=== PATIENT | male | born 1955 | race Two or more races ===

== ENCOUNTER 2022-04-23 03:09 | Inpatient (IN) | payer MEDICARE, OTHER ==
[~2022-04-23] VITALS: Ht 177.8 cm; Wt 74.8 kg
[2022-04-23] MEDS ORDERED: LORAZEPAM INJ 2 MG/ML VIAL ONE ×2 (03:37→05:22)
--- NOTE | 2022-04-23 03:40 | NUR ---
PATIENT BIBRA 87 FROM HOME PER EMS, PATIENTS FRIEND CALLED TO CHECK ON PATIENT. PATIENT WAS FOUND IN BATHROOM, COVERED IN FECES, EMPTY ALCOHOL BOTTLES FOUND IN BATHROOM, WITH CRACK PIPES. PATIENT IS A/O X 3, LABORED BREATHING, TACHY. PATIENT TAKEN TO ER BED 12. PATIENT CONNECTED TO CARDAIC MONITOR AND POX.
--- NOTE | 2022-04-23 03:48 | NUR ---
LAC#18 G S/L BLOOD COLLECTED AND SENT TO LAB
[2022-04-23] MEDS ORDERED: METOPROLOL TARTRATE INJ 5 MG/5 ML AMPUL ONE ×3 (03:58→04:47)
[2022-04-23] MEDS ORDERED: LORAZEPAM INJ 2 MG/ML VIAL IV ONE ×2 (04:00→05:30)
[2022-04-23] MEDS ORDERED: IV NS 0.9% 1,000 ML IV ONE (04:00)
[2022-04-23] MEDS ORDERED: METOPROLOL TARTRATE INJ 5 MG/5 ML AMPUL IV ONE ×3 (04:00→05:00)
--- NOTE | 2022-04-23 04:08 | NUR ---
COVID ANTIGEN SWAB COLLECTED AND SENT TO LAB
--- NOTE | 2022-04-23 04:15 | NUR ---
MANAGER SYSTEM AT PT'S BEDSIDE
--- NOTE | 2022-04-23 04:15 | NUR ---
PT TAKEN TO CT VIA DONOVAN
[2022-04-23 04:41] LABS: BASOPHILS % (AUTO) 0.1 % (0.0-2.0); HEMATOCRIT 42 % (39-51); HEMOGLOBIN 14.1 g/dL (13.5-17.5); LYMPHOCYTES # (AUTO) 0.3 K/uL (0.8-4.8); LYMPHOCYTES % (AUTO) 2.4 % (20.0-44.0); MEAN CORPUSCULAR HGB CONC 34 g/dl (31.0-36.0); MEAN CORPUSCULAR VOLUME 106 fL (80-96); MONOCYTES # (AUTO) 1.2 K/uL (0.1-1.30); MONOCYTES % (AUTO) 8.3 % (2.0-12.0); NEUTROPHILS # (AUTO) 12.6 K/uL (1.8-8.9); NEUTROPHILS % (AUTO) 89.2 % (43.0-81.0); PLATELET COUNT (AUTO) 209 K/uL (150-450); RED BLOOD CELL COUNT(AUTO) 3.94 MIL/uL (4.5-6.0); WHITE BLOOD COUNT (AUTO) 14.1 K/uL (4.3-11.0)
[2022-04-23 04:52] LABS: CREATININE 1.2 mg/dL (0.6-1.3); POTASSIUM 4.6 mmol/L (3.5-5.1)
[2022-04-23] MEDS ORDERED: METOPROLOL TARTRATE 50 MG TABLET ONE (05:04)
[2022-04-23] MEDS ORDERED: METOPROLOL SUCCINATE 25 MG TAB.SR.24H ONE (05:06)
[2022-04-23 05:17] LABS: ALBUMIN 2.7 g/dL (3.4-5.0); BILIRUBIN,TOTAL 2.5 mg/dL (0.2-1.0); TOTAL PROTEIN, SERUM 8.1 g/dL (6.4-8.2)
[2022-04-23] MEDS: METOPROLOL SUCCINATE 50 MG TAB.SR.24H PO SCH (05:18)
--- NOTE | 2022-04-23 05:18 | NUR ---
URINE COLLECTED AND SENT TO LAB
[2022-04-23] MEDS ORDERED: Thiamine 100 MG in IV D5W 50 ML IV STA (05:23)
[2022-04-23 05:26] LABS: BILIRUBIN,DIRECT 1.7 mg/dL (0.0-0.2)
[2022-04-23] MEDS ORDERED: Thiamine 100 MG/ML VIAL ONE (05:27)
[2022-04-23] MEDS ORDERED: ACETAMINOPHEN 325 MG TABLET PO PRN (06:00)
[2022-04-23] MEDS ORDERED: Z GUARD REMEDY 4 OZ OINT TP PRN (06:00)
[2022-04-23] MEDS ORDERED: MAG HYDROX/AL HYDROX/SIMETH 30 ML UDC PO PRN (06:00)
[2022-04-23] MEDS ORDERED: ONDANSETRON HCL/PF 4 MG/2 ML VIAL IVP PRN (06:00)
[2022-04-23] MEDS ORDERED: IV D5/0.45 NACL 1,000 ML IV PRN (06:00)
[2022-04-23] MEDS ORDERED: MAGNESIUM HYDROXIDE 30 ML UDC PO PRN (06:00)
[2022-04-23 06:06] LABS: BILIRUBIN,URINE 2+ (NEGATIVE); COLOR,URINE DARK YELLOW (YELLOW); LEUKOCYTE ESTERASE ,URINE NEGATIVE (NEGATIVE); NITRITE, URINE POSITIVE (NEGATIVE); PH,URINE 5.5 (5.0-8.0); PROTEIN,URINE 2+ mg/dl (NEGATIVE); UGLUCOSE TRACE mg/dL (NEGATIVE)
--- NOTE | 2022-04-23 06:32 | NUR ---
US TECH AT BED SIDE
[2022-04-23 06:45] LABS: BACTERIA,URINE Rare /HPF (None Seen); SQUAMOUS EPITHELIAL CELL,UR Few /HPF (None Seen)
[2022-04-23 07:08] LABS: ALBUMIN 2.3 g/dL (3.4-5.0); BILIRUBIN,DIRECT 2.3 mg/dL (0.0-0.2); BILIRUBIN,TOTAL 3.3 mg/dL (0.2-1.0); CALCIUM, SERUM 7.9 mg/dL (8.5-10.1); MAGNESIUM 1.4 mg/dL (1.8-2.4); PHOSPHORUS 2.8 mg/dL (2.5-4.9); POTASSIUM 4.1 mmol/L (3.5-5.1)
[2022-04-23] MEDS: PANTOPRAZOLE 40 MG TABLET.DR PO SCH (07:30)
[2022-04-23 07:33] LABS: BASOPHILS % (AUTO) 0.2 % (0.0-2.0); HEMATOCRIT 37 % (39-51); HEMOGLOBIN 12.9 g/dL (13.5-17.5); LYMPHOCYTES # (AUTO) 0.4 K/uL (0.8-4.8); LYMPHOCYTES % (AUTO) 3.8 % (20.0-44.0); MEAN CORPUSCULAR HGB CONC 35 g/dl (31.0-36.0); MEAN CORPUSCULAR VOLUME 105 fL (80-96); MONOCYTES % (AUTO) 10.3 % (2.0-12.0); NEUTROPHILS % (AUTO) 85.7 % (43.0-81.0); PLATELET COUNT (AUTO) 137 K/uL (150-450); RED BLOOD CELL COUNT(AUTO) 3.57 MIL/uL (4.5-6.0); WHITE BLOOD COUNT (AUTO) 9.3 K/uL (4.3-11.0)
[2022-04-23 08:00] LABS: THYROID STIMULATING HORMONE 2.114 uIU/mL (0.358-3.74)
--- NOTE | 2022-04-23 08:45 | NUR ---
PT AWAKE AND VERBALLY RESPONSIVE. NOT IN ACUTE DISTRESS. REPOSITIONED IN BED, KEPT COMFORTABLE.
[2022-04-23] MEDS: FOLIC ACID 1 MG TABLET PO SCH (09:00)
[2022-04-23] MEDS: MULTIVITAMINS,THERAGRAN 1 UDTAB TABLET PO SCH (09:00)
--- NOTE | 2022-04-23 09:19 | NUR ---
ROOM 308-2
[2022-04-23] MEDS ORDERED: METO-358 PO (09:25)
--- NOTE | 2022-04-23 09:31 | NUR ---
PT REPORT GIVEN TO DYANA TONY
--- NOTE | 2022-04-23 09:40 | NUR ---
DYANA BOOKER FROM LAB CALLED AND REPORTED BLOOD CULTURE RESULT OF GRAM POSITIVE COCCI IN CHAIN. LOWELL ROME ATTENDED TO THE PATIENT AND REPORTED THE RESULT. Addendum: 04/24/22 at 0101 by AKASH MERRITT RN THE WRONG TIME ENTRY , THE TIME WAS 2140.
--- NOTE | 2022-04-23 09:47 | NUR ---
PT TRANSFERRED TO 308 VIA [facility] ACLS PROTOCOL. WARM HANDOFF GIVEN TO RN ASSIGNED.
--- NOTE | 2022-04-23 10:00 | NUR ---
COUNTER MOLDERSUMAC TANNER NOTE PATIENT ADMITTED FROM ED TO TELE ROOM 308-2 BY DONOVAN AT 0945. PRIMARY DX OF AFIB. PATIENT IS A/OX2, ABLE TO MAKE NEEDS KNOWN. PATIENT ORIENTED TO STAFF AND ROOM. V/S TAKEN AND RECORDED TELE MONITOR SHOWING AFIB, HR 100-135. NO CARDIAC DISTRESS VOICED. ON ROOM AIR, TOLERATING WELL, BREATHING EVENLY AND UNLABORED, NO SOB. PHOTOS OF SKIN ISSUES TAKEN, REFERRED FOR WOUND CONSULT. IV LINE ACCESS TO LEFT AC #18G, INTACT AND PATENT, NO SIGNS OF INFILTRATION. SAFETY MEASURES IMPLEMENTED, BED IN LOWEST LOCKED POSITION WITH SIDE RAILS UP X3. HOB ELEVATED WITH CALL LIGHT AND TRAY WITHIN REACH. WILL CONTINUE TO MONITOR PATIENT ACCORDINGLY.
--- NOTE | 2022-04-23 10:39 | NUR ---
RN NOTES NURSE INFORMATICS EDUCATOR HARRISON ON UNIT AND MADE AWARE OF PATIENT'S ADMISSION. NURSE INFORMATICS EDUCATOR HARRISON WENT TO SEE AND EVALUATED PATIENT WITH ORDER TO DO NURSING SWALLOW EVALUATION. PATIENT ABLE TO SWALLOW APPLESAUCE AND WATER WITHOUT CHOKING OR COUGHING. NURSE INFORMATICS EDUCATOR MADE AWARE WITH ORDER TO START PATIENT ON PUREED DIET. WILL CONTINUE TO MONITOR
[2022-04-23] MEDS ORDERED: ENOXAPARIN SODIUM 40 MG/0.4 ML DISP.SYRIN SQ SCH (11:00)
--- NOTE | 2022-04-23 11:30 | NUR ---
RN NOTE PT PULLED OUT IV. , NO ACTIVE BLEEDING OR PAIN NOTED. NEW IVS STARTED IN LEFT FOR FOREARM #22G, LEFT HAND #20G; PATENT AND FLUSHES WELL. IN VS 100ML/HR STARTED.
[2022-04-23] MEDS: Thiamine 100 MG in IV D5W 50 ML IV SCH (11:56)
[2022-04-23] MEDS: Magnesium 1GM/D5W 100ML PREMIX 100 ML IV SCH ×3 (11:59→13:28)
[2022-04-23] MEDS: IV NS 0.9% 1,000 ML IV PRN (12:00)
[2022-04-23] MEDS: CEFTRIAXONE 1 G in IV D5W 50 ML IV SCH (12:53)
[2022-04-23] MEDS: METRONIDAZOLE 500MG/ NS 100ML 500 MG in PREMIX 1 EA IV SCH ×2 (12:54→17:00)
[2022-04-23 13:39] LABS: THYROID STIMULATING HORMONE 2.148 uIU/mL (0.358-3.74)
[2022-04-23] MEDS ORDERED: LORAZEPAM INJ 2 MG/ML VIAL IV PRN (16:00)
[2022-04-23] MEDS: CHLORDIAZEPOXIDE HCL 25 MG CAPSULE PO SCH (16:25)
[2022-04-23] MEDS: ENOXAPARIN SODIUM 80 MG/0.8 ML DISP.SYRIN SQ SCH (16:26)
[2022-04-23 16:32] VITALS: BP 136/88
--- NOTE | 2022-04-23 18:10 | NUR ---
RN NOTE THROUGHOUT SHIFT, PT OCCASIONALLY REFUSES TO BE CHANGED, REPOSITIONED, AND ATTEMPTS TO PULL AT IV LINE. WRAPPED LINES WITH GAUZE WRAP AND CONTINUED ATTEMPTING REPOSITION. WILL CONTINUE TO MONITOR AND TURN.
--- NOTE | 2022-04-23 18:32 | NUR ---
CERTIFIED TECHNICIAN SPECIALIST CLOSING NOTE PATIENT SLEEPING IN BED, RESPONDS TO NAME. A/OX2 CONFUSED, ABLE TO MAKE NEEDS KNOWN. IV ACCESS IN LEFT FOREARM #22G, AND LEFT HAND #20G; PATENT AND FLUSHES WELL. NS RUNNING AT 100ML/HR. ON TELE MONITOR, TRENDING FROM AFIB TO SINUS TACHY WITH HR AT 124.NO CARDIAC DISTRESS VOICED. ON ROOM AIR WITH NO SOB, BREATHING EVEN AND UNLABORED. SAFETY PRECAUTIONS IN PLACE WITH BED IN LOWEST AND LOCKED POSITION, TRAY AND CALL LIGHT WITHIN REACH. ALL NEEDS MET AT THIS TIME. WILL ENDORSE DANA TO NIGHT NURSE.
--- NOTE | 2022-04-23 19:30 | NUR ---
DIGITAL SALES PLANNER OPENING NOTE RECEIVED PATIENT AWAKE IN BED. PATIENT IS A/OX2 WITH EPISODES OF CONFUSION.REORIENT THE PATIENT.ABLE TO MAKE NEEDS KNOWN. IV ACCESS IN LEFT FOREARM #22G, AND LEFT HAND #20G PATENT AND INTACT. RUNNING NS AT 100ML/HR. ON TELE MONITOR READING SR TACHY WITH HR READING 119.NO CARDIAC DISTRESS NOTED. ON ROOM AIR .NO SOB NOTED, BREATHING EVEN AND UNLABORED. ALL SAFETY PRECAUTIONS IN PLACE WITH BED IN LOWEST AND LOCKED POSITION, TABLE AND CALL LIGHT WITHIN EASY REACH. SIDE RAILS UP TIMES 2. BED ALARM ON. WILL CONTINUE TO MONITOR CLOSELY.
[2022-04-23 21:55] VITALS: BP 123/84
[2022-04-23] MEDS ORDERED: VANCOMYCIN 1.25 GM in IV D5W 250 ML IV ONE (22:30)
[2022-04-23] MEDS ORDERED: VANCOMYCIN 1 GM VIAL ONE ×2 (23:05→23:09)
[2022-04-24] VITALS: BP 105/65
[2022-04-24] MEDS: IV NS 0.9% 1,000 ML IV PRN ×2 (02:34→13:59)
[2022-04-24 04:00] VITALS: BP 124/86
[2022-04-24] MEDS: METOPROLOL SUCCINATE 50 MG TAB.SR.24H PO SCH (05:02)
[2022-04-24 06:30] LABS: BASOPHILS % (AUTO) 0.1 % (0.0-2.0); EOSINOPHILS % (AUTO) 0.1 % (0.0-6.0); HEMATOCRIT 35 % (39-51); HEMOGLOBIN 11.7 g/dL (13.5-17.5); LYMPHOCYTES # (AUTO) 0.5 K/uL (0.8-4.8); LYMPHOCYTES % (AUTO) 8.9 % (20.0-44.0); MEAN CORPUSCULAR HGB CONC 34 g/dl (31.0-36.0); MEAN CORPUSCULAR VOLUME 106 fL (80-96); MONOCYTES # (AUTO) 0.5 K/uL (0.1-1.30); MONOCYTES % (AUTO) 8.2 % (2.0-12.0); NEUTROPHILS # (AUTO) 4.9 K/uL (1.8-8.9); NEUTROPHILS % (AUTO) 82.7 % (43.0-81.0); PLATELET COUNT (AUTO) 97 K/uL (150-450); RED BLOOD CELL COUNT(AUTO) 3.27 MIL/uL (4.5-6.0); WHITE BLOOD COUNT (AUTO) 5.9 K/uL (4.3-11.0)
--- NOTE | 2022-04-24 06:32 | NUR ---
MATERIAL LISTER CLOSING NOTE PATIENT AWAKE IN BED. PATIENT IS A/OX2 WITH EPISODES OF CONFUSION.REORIENT THE PATIENT.ABLE TO MAKE NEEDS KNOWN. IV ACCESS IN LEFT FOREARM #22G, AND LEFT HAND #20G PATENT AND INTACT. RUNNING NS AT 100ML/HR. ON TELE MONITOR READING SR TACHY WITH HR READING 116 WITH PAC'S.NO CARDIAC DISTRESS NOTED. ON ROOM AIR .NO SOB NOTED, BREATHING EVEN AND UNLABORED. ALL DUE MEDS GIVEN ORDERED.ALL SAFETY PRECAUTIONS IN PLACE WITH BED IN LOWEST AND LOCKED POSITION, TABLE AND CALL LIGHT WITHIN EASY REACH. SIDE RAILS UP TIMES 2. BED ALARM ON. WILL ENDORSE FOR DANA TO INCOMING SHIFT NURSE.
[2022-04-24 06:44] LABS: ALBUMIN 2.1 g/dL (3.4-5.0); BILIRUBIN,DIRECT 2.5 mg/dL (0.0-0.2); BILIRUBIN,TOTAL 3.1 mg/dL (0.2-1.0); MAGNESIUM 1.8 mg/dL (1.8-2.4); PHOSPHORUS 2.4 mg/dL (2.5-4.9); TOTAL PROTEIN, SERUM 6.4 g/dL (6.4-8.2)
[2022-04-24 06:49] LABS: CREATINE KINASE, TOTAL 908 U/L (39-308)
--- NOTE | 2022-04-24 07:25 | NUR ---
BOILER REPAIR SUPERVISOR OPENING NOTE RECEIVED PATIENT AWAKE IN BED. PATIENT IS A/OX2 WITH EPISODES OF CONFUSION. ABLE TO MAKE NEEDS KNOWN. IV ACCESS IN LEFT FOREARM #22G, AND LEFT HAND #20G PATENT AND INTACT. RUNNING NS AT 100ML/HR. ON EXTERNAL USED EQUIPMENT SALES REPRESENTATIVE. NO CARDIAC DISTRESS NOTED AT THE MOMENT. PT IS ON ROOM AIR BREATHING EVEN AND NON LABORED. NO SOB NOTED AT THE MOMENT. ALL SAFETY PRECAUTIONS IN PLACE WITH BED IN LOWEST AND LOCKED POSITION, TABLE AND CALL LIGHT WITHIN EASY REACH. SIDE RAILS UP X 2. BED ALARM ON. WILL CONTINUE TO MONITOR.
[2022-04-24 08:00] VITALS: BP 114/90
[2022-04-24] MEDS: MULTIVITAMINS,THERAGRAN 1 UDTAB TABLET PO SCH (08:20)
[2022-04-24] MEDS: PANTOPRAZOLE 40 MG TABLET.DR PO SCH (08:20)
[2022-04-24] MEDS: FOLIC ACID 1 MG TABLET PO SCH (08:20)
[2022-04-24] MEDS: CHLORDIAZEPOXIDE HCL 25 MG CAPSULE PO SCH ×3 (08:20→16:46)
[2022-04-24] MEDS: ENOXAPARIN SODIUM 80 MG/0.8 ML DISP.SYRIN SQ SCH (08:22)
--- NOTE | 2022-04-24 08:47 | NUR ---
WOUND CARE CONSULT: PT ADAMANTLY REFUSED SKIN ASSESSMENT. PER ADMISSION PHOTOS, THERE ARE MULTIPLE PRESSURE ULCERS PRESENT ON ADMISSION INCLUDING HEEL DEEP TISSUE INJURIES, RT UPPER BACK, MIDBACK, SACRAL, RT HIP, RT FLANK AREA WOUNDS AND DEEP TISSUE INJURIES. DR SARAH CALLED FOR SURGICAL CONSULT. FIRST STEP LOW AIRLOSS MATTRESS IS ON ORDER. DISCUSSED SKIN PROTECTION WITH NURSING STAFF. MD IN AGREEMENT WITH PLAN OF CARE. Addendum: 04/24/22 at 0850 by LUIS GEE WNDNU PER PT REPORT, HE HAS BEEN BEDBOUND FOR 1 MONTH AT HOME.
[2022-04-24] MEDS ORDERED: K PHOS NEUTRAL 250 MG TABLET PO ONE (09:00)
[2022-04-24] MEDS: CEFTRIAXONE 1 G in IV D5W 50 ML IV SCH (10:00)
[2022-04-24] MEDS: Thiamine 100 MG in IV D5W 50 ML IV SCH (10:27)
[2022-04-24] MEDS: VANCOMYCIN 1 GM in IV D5W 250 ML IV SCH ×2 (11:10→22:47)
--- NOTE | 2022-04-24 11:49 | NUR ---
SW Consult: SW received a consult for possible polysubstance abuse. SW met with patient to assess. Pt appeared alert and oriented x2. Pt appeared drowsy and sleepy. His speech appeared slurred and was not able to be cooperative. He was vague with his answers. Pt did state that he lives at home and that he slipped at home. He reported that he was clumsy. Pt did not further answer any other questions. SW assessed for substance abuse and pt denied. SW offered resources and pt stated "no". Pt denied suicidal or homicidal ideation. Pt denied visual/auditory hallucinations. SW contacted person to notify to gather further information Joe ([phone]) and he stated he works for pt and is his friend. He shared that pt's home environment is safe and that [place] [address] [address]; ([phone]). He stated that had a girlfriend and was living with his gf but currently . He shared that pt does drink alcohol here and there. Friend Joe reported that pt's home is safe. DC [place]: [place] [address] [address]; ([phone]). Pt can return back home or follow doctors recommendation. Substance Abuse resources provided included: [facility] Substance Abuse Self-Helpline ([facility]) ; [facility] [address] [facility] [place] [id number] ; [facility] [address] [facility] [address] ; [facility] [address] [facility] [address] ; [facility] [address] [facility] [address] ; [facility] [address] [facility] [address] ; [facility] [address] [facility] [address] ; [facility] Substance Abuse Helpline([facility] ; [facility] ; [facility] [place]; [facility]; [facility] [place]; [facility] [place]; [facility] [place]; [place] [facility] [place]; [facility] [place]; [facility], [facility]. [facility]; Alcoholics Anonymous -[facility]; [facility] ; Marijuana Anonymous [facility]; Narcotics Anonymous www.na.org;
[2022-04-24 12:00] VITALS: BP 129/68
[2022-04-24 12:56] LABS: BAND % (MANUAL) 5 % (0.0-5.0); LYMPHOCYTES % (MANUAL) 8 % (16-48); NEUTROPHILS % (MANUAL) 78 (42-76); REACTIVE LYMPHOCYTES 9 % (0-0)
[2022-04-24 16:00] VITALS: BP 124/89
[2022-04-24 16:46] VITALS: BP 124/89
[2022-04-24] MEDS ORDERED: METOPROLOL SUCCINATE 50 MG TAB.SR.24H PO SCH (17:00)
[2022-04-24] MEDS ORDERED: ACETAMINOPHEN 325 MG TABLET PO PRN (17:00)
--- NOTE | 2022-04-24 18:45 | NUR ---
MEASURING MACHINE TENDER CLOSING NOTE PATIENT SLEEPING IN BED, RESPONDS TO NAME. A/OX2 CONFUSED, ABLE TO MAKE NEEDS KNOWN. IV ACCESS IN LEFT FOREARM #22G, AND LEFT HAND #20G; PATENT AND FLUSHES WELL. NS RUNNING AT 100ML/HR. ON EXTERNAL TELE MONITOR.NO CARDIAC DISTRESS NOTED. ON ROOM AIR WITH NO SOB, BREATHING EVEN AND UNLABORED. DUE MEDS GIVEN. SAFETY PRECAUTIONS IN PLACE WITH BED IN LOWEST AND LOCKED POSITION, CALL LIGHT WITHIN REACH. ALL NEEDS MET AT THIS TIME. WILL ENDORSE DANA TO NIGHT NURSE.
--- NOTE | 2022-04-24 19:30 | NUR ---
INTERNET SALES ASSOCIATE OPENING NOTE RECEIVED PATIENT AWAKE IN BED. FRIEND VISITING THE PATIENT.PATIENT IS A/OX2 WITH EPISODES OF CONFUSION.REORIENT THE PATIENT.ABLE TO MAKE NEEDS KNOWN. IV ACCESS IN LEFT FOREARM #22G, AND LEFT HAND #20G PATENT AND INTACT. RUNNING NS AT 100ML/HR. ON TELE MONITOR READING SR .NO CARDIAC DISTRESS NOTED. ON ROOM AIR .NO SOB NOTED, BREATHING EVEN AND UNLABORED. ALL SAFETY PRECAUTIONS IN PLACE WITH BED IN LOWEST AND LOCKED POSITION, TABLE AND CALL LIGHT WITHIN EASY REACH. SIDE RAILS UP TIMES 2. BED ALARM ON. WILL CONTINUE TO MONITOR CLOSELY.
[2022-04-24] MEDS ORDERED: THERAHONEY GEL 1.5 OZ TUBE TP SCH (21:30)
--- NOTE | 2022-04-24 21:30 | NUR ---
RN NOTES MEDICATION IS NOT AVAILABLE FOR THIS TIME. WILL ENDORSE MORNING SHIFT . WILL CHANGE THE DRESSING AND FOLLOW REST OF THE TREATMENT TILL MORNING.
[2022-04-25] MEDS: IV NS 0.9% 1,000 ML IV PRN (01:29)
--- NOTE | 2022-04-25 04:40 | NUR ---
RN NOTES PATIENT CALLED THE FRIEND [place] AROUND 0300 AM AND ASKING HIM TO COME AND PICK HIM UP. PATIENT STATING HE JUST WANT TO GO HOME AND WAS YELLING AT HIS FRIEND ON THE PHONE TO COME AND PICK HIM UP. THE PATIENT WAS CONSTANTLY ASKING HIS FRIEND TO HURRY UP AND BRING HIS WHEELCHAIR WITH HIM. PATIENT REFUSING TREATMENT . EXPLAINED TO THE PATIENT IF HE LEAVES THE HOSPITAL IT WILL BE AMA AND HE WILL NOT GET ANY TREATMENTS FOR THAT. PATIENT VERBALIZED UNDERSTANDING AND YELLING AT ME THAT HE KNOWS THAT. THE FRIEND [place] ARRIVED AROUND 0400 AM WITH PATIENT'S WHEELCHAIR. THE FRIEND HELPED THE PATIENT TO DRESS UP. ALL THE BELONGINGS ACCOUNTED AND SIGNED FOR BY THE PATIENT. MONEY WHICH WAS 850.00 $ AND THE WALLET AND THE INSURANCE CARD WHICH WAS IN THE SAFE , GOT FROM NURSE PRINT PRODUCTION MANAGER. GAVE ALL THOSE BELONGINGS TO THE PATIENT AND COUNTED THE MONEY IN FRONT OF FRIEND AND HANDED HIM. IV SITE REMOVED. COVERED WITH DRY DRESSING. NO BLEEDING NOTED. ID REMOVED. PUT IN THE SHREDDER. PATIENT SIGNED THE AMA PAPER. PATIENT LEFT HOSPITAL WITH HIS FRIEND [place] AT 0425 AM. NURSE PRINT PRODUCTION MANAGER AND CHARGE NURSE AND ENGINEERING DESIGN SUPERVISOR FIORELLA PARK AWARE OF THE PATIENT'S LEAVE.
[2022-04-25] MEDS ORDERED: THIAMINE HCL 100 MG TABLET PO SCH (09:00)
== END 2022-04-25 04:15 | disposition left against medical advice (07) | DRG 871 ==
LOC: ER 03:12 → TELE 09:21
PROVIDERS: ADMIT Nurse Practitioner Family
DX: A41.9 Sepsis, unspecified organism (principal); G92.8 Other toxic encephalopathy; E44.0 Moderate protein-calorie malnutrition; E87.1 Hypo-osmolality and hyponatremia; N39.0 Urinary tract infection, site not specified; M62.82 Rhabdomyolysis; N17.9 Acute kidney failure, unspecified; I48.91 Unspecified atrial fibrillation; B96.89 Other specified bacterial agents as the cause of diseases classified elsewhere; F12.10 Cannabis abuse, uncomplicated; F14.10 Cocaine abuse, uncomplicated; D64.9 Anemia, unspecified; D69.6 Thrombocytopenia, unspecified; E83.42 Hypomagnesemia; E86.0 Dehydration; E88.09 Other disorders of plasma-protein metabolism, not elsewhere classified; K08.9 Disorder of teeth and supporting structures, unspecified; K76.0 Fatty (change of) liver, not elsewhere classified; R62.7 Adult failure to thrive; Z53.29 Procedure and treatment not carried out because of patient's decision for other reasons; Z86.73 Personal history of transient ischemic attack (TIA), and cerebral infarction without residual deficits; F10.129 Alcohol abuse with intoxication, unspecified; S30.0XXA Contusion of lower back and pelvis, initial encounter; X58.XXXA Exposure to other specified factors, initial encounter; Y93.9 Activity, unspecified; Y92.009 Unspecified place in unspecified non-institutional (private) residence as the place of occurrence of the external cause
CPT/HCPCS: 36415; 70450-TC; 71045-TC; 73502; 76700-TC; 80048-TC; 80053-TC; 80061-TC; 80076-TC; 81001; 82247-TC; 82248-TC; 82550-TC; 82553; 82728-TC; 83540-TC; 83735-TC; 83880; 84100-TC; 84439-TC; 84443-TC; 84484-TC; 85025-TC; 87040-TC; 87081-TC; 87086-TC; 93307-TC; 97112-TC; 97530-TC; A4216; A6403; C9803; G0378; G0480; J0696; J1650; J2060; J3370; J3411; J3475; J3490; J7030; J7042; J7050; J7060